=== PATIENT | female | born 2000 | race Caucasian/White ===

== ENCOUNTER 2025-01-05 14:06 | Outpatient (CLI) | payer OTHER, SELFPAY | END 2025-01-05 14:07 | disposition home or self-care (01) | PROVIDERS: Visit Provider Family Medicine | DX: R76.12 Nonspecific reaction to cell mediated immunity measurement of gamma interferon antigen response without active tuberculosis (principal); Z79.899 Other long term (current) drug therapy | CPT/HCPCS: 80053 ==

== ENCOUNTER 2025-03-19 19:57 | Emergency (ER) | payer OTHER, SELFPAY ==
[2025-03-19 20:09] VITALS: BP 126/87; PULSE 90; RESP 20; TEMP 36.7; O2SAT 99; BMI 19.3
--- NOTE | 2025-03-19 20:26 | ED_ITS ---
HPI - General Adult General Chief complaint: Vaginal Bleeding Stated complaint: Excessive vaginal bleeding Time Seen by Provider: 03/19/25 20:09 History of Present Illness HPI narrative: Arrives with heavy vaginal bleeding with large clots, states she saturated 5 pads in 30 minutes earlier today and 4 pads during the night last night. denies pain but does complain of some dizziness. Alert and oriented, ABCs intact. 24-year-old woman presenting to the emergency department with concern of vaginal bleeding. Did have a scant period a month ago and then was having what otherwise would have seem to be a normal period beginning March 12. Blood for about 4 days which would not be necessarily unusual and then went away but then returned again over the last couple of days. Have your bleeding last night and then earlier today saturated some pads. She is feeling a little bit lightheaded. No nausea. No shortness of breath. No particular pain. Had a what looks to be racquet ball size clot here earlier today in with this was recommended to be seen in the emergency department. There trying to decide whether not they really need to be seen. She did do a home test on March 10 which was negative Revealed later that takes a monthly contraceptive shot obtain from the [facility]. Does do monthly test in anticipation of the shot. [email or web address] and estradiol She likes this as opposed to the 3 month shot because she only has 1 day of period every few months. Related Data Previous Rx's ?Medication ?Instructions ?Recorded rifampin 150 mg capsule 450 mg (3 x 150 mg) PO QDAY #270 01/06/25 caps miconazole nitrate 2 % topical 1 applic topical BID #1 5 grams 01/26/25 cream (Antifungal (miconazole)) Allergies Allergy/AdvReac Type Severity Reaction Status Date / Time rifampin Allergy Intermediate Hives Verified 03/22/25 09:29 Review of Systems Status of ROS: Reports: 6 or more systems reviewed and unremarkable except as noted in History and below [facility] Medical History No significant past medical history Surgical History No history of previous surgery Social History Narrative: Has boyfriend, but in [place], no children, originally from [facility] Does not read exercise on regular basis Lifetime nonsmoker Extremely rare use of alcohol No drug use What is your current living situation?: I presently have a place to live Problems where you live: no known problems In the past 12 months, utilities in danger of being shut off: no In past 12 months, lack of transportation kept you from medical appts, meetings, work, or getting things needed for daily living: no In the past 12 mos, have been you worried that your food would run out before you had money to buy more?: never true In the past 12 mos, the food you bought just didn't last and you didn't have money to buy more?: never true How often does anyone, including family, friends and others, physically hurt you : never How often does anyone, including family, friends and others, insult or talk down to you: never How often does anyone, including family, friends and others, threaten you with harm: never How often does anyone, including family, friends and others, scream or curse at you: never Exam Narrative: Exam Narrative: Pleasant. NAD. Breathing easily. Heart in mildly elevated rate but regular rhythm. exam was not done. She is well-perfused peripherally. Mucous membranes are appropriately perfused. Const: Vital Signs, click to edit/add: Vital Signs - 24 hr 03/19/25 20:09 Temperature 98.1 F Pulse Rate [Pulse Oximeter] 90 Respiratory Rate 20 Blood Pressure [Ri ght Upper Arm] 126/87 Pulse Oximetry 99 Oxygen Delivery Me thod Room Air Documenting provider has reviewed patient's vital signs: yes Course Vital Signs Vital signs: Initial Vital Signs Temperature 98.1 F 03/19/25 20:09 Temperature Source Temporal Artery Scan 03/19/25 20:09 Pulse Rate 90 03/19/25 20:09 Respiratory Rate 20 03/19/25 20:09 Blood Pressure 126/87 03/19/25 20:09 Blood Pressure Mean 100 03/19/25 20:09 Pulse Oximetry 99 03/19/25 20:09 Oxygen Delivery Method Room Air 03/19/25 20:09 Vital Signs Temperature 98.1 F 03/19/25 20:09 Pulse Rate 90 03/19/25 20:09 Respiratory Rate 20 03/19/25 20:09 Blood Pressure 126/87 03/19/25 20:09 Pulse Oximetry 99 03/19/25 20:09 Oxygen Delivery Method Room Air 03/19/25 20:09 Temperature 98.1 F 03/19/25 20:09 Pulse Rate 90 03/19/25 20:09 Respiratory Rate 20 03/19/25 20:09 Blood Pressure 126/87 03/19/25 20:09 Pulse Oximetry 99 03/19/25 20:09 Oxygen Delivery Method Room Air 03/19/25 20:09 Medical Decision Making MDM Narrative Medical decision making narrative: They are debating leaving. I think that is fine but ultimately settled on checking some blood work and can advise further at that time. Might need ultrasound but would hold off pending testing or worsening bleeding. HCG is negative and hgb normal. Blood type O pos Bleeding is not worsening to possibly lightening. Anticipating outpatient follow up See patient discharge plan for further discussion Medical Records Medical records reviewed: Yes I reviewed the patient's medical records Lab Data Lab results reviewed: Yes I reviewed the patient's lab results Labs: Lab Results 03/19/25 Range/Units 21:10 Hgb 13.1 (12.0-16.0) gm/dL HCG, Qual Negative (Negative) Blood Type O Positive Discharge Plan Discharge Clinical Impression: Menorrhagia Qualifiers: Menorrhagia type: with irregular cycle Qualified Code(s): N92.1 - Excessive and frequent menstruation with irregular cycle Patient Disposition: Home w/ Parent or Adult Condition: Improved Additional Instructions: It would be a good idea to be re-evaluated if you continue to soak 1 overnight pad an hour for 2 consecutive hours, or are feeling worsening lightheadedness or shortness of breath. I understand that you prefer the monthly contraceptive shot you have been giving yourself. Might be a good idea though to check in with the [facility] here for further advice or recommendations, options for contraception. [facility] phone number is : [phone] Prescriptions: No Action rifampin 150 mg capsule 450 mg PO QDAY Qty: 270 3RF Rx Instructions: Take 3 capsules daily for 4 months for latent tuberculosis miconazole nitrate [Antifungal (miconazole)] 2 % cream 1 applic topical BID Qty: 15 0RF Follow Up/Referrals: Provider,Not a Local [Primary Care Provider, Family Practice] Stand Alone Forms: MyHealth Info Instructions
[2025-03-19 21:14] LABS: Hemoglobin* 13.1 gm/dL (12.0-16.0)
[2025-03-19 21:45] LABS: HCG Qualitative Serum* Negative (Negative)
== END 2025-03-19 22:15 | disposition home or self-care (01) ==
PROVIDERS: Emergency Provider Family Medicine
DX: N92.1 Excessive and frequent menstruation with irregular cycle (principal)
CPT/HCPCS: 36415; 84703; 85018; 86900; 86901; 99283; 99284